=== PATIENT | female | born 1990 | race American Indian/Alaskan Native ===

== ENCOUNTER 2019-03-10 13:50 | Emergency (ER) | payer OTHER ==
--- NOTE | 2019-03-10 13:57 | Emergency Department Report ---
Blank Doc - Documentation Documentation: This is a 28-year-old female that presents with fatigue, urinary symptoms, and urinary frequency. This initial assessment/diagnostic orders/clinical plan/treatment(s) is/are subject to change based on patient's health status, clinical progression and re- assessment by fellow clinical providers in the ED. Further treatment and workup at subsequent clinical providers discretion. Patient/guardians urged not to elope from the ED as their condition may be serious if not clinically assessed and managed. Initial orders include: 1- Patient sent to [facility] for further evaluation and treatment 2- labs 3- UA
[2019-03-10 14:20] LABS: Basophils % (Auto) 0.5 % (0.0-1.8); Eosinophils # (Auto) 0.3 K/mm3 (0.0-0.4); Eosinophils % (Auto) 3.5 % (0.0-4.3); Hematocrit 37.9 % (30.3-42.9); Hemoglobin 12.6 gm/dl (10.1-14.3); Lymphocytes # (Auto) 2.8 K/mm3 (1.2-5.4); Lymphocytes % (Auto) 36.2 % (13.4-35.0); Mean Corpuscular HGB Conc 33 % (30-34); Mean Corpuscular Volume 98 fl (79-97); Monocytes # (Auto) 0.7 K/mm3 (0.0-0.8); Monocytes % (Auto) 9.3 % (0.0-7.3); Platelet Count 297 K/mm3 (140-440); Red Blood Count 3.86 M/mm3 (3.65-5.03); Red Cell Distribution Width 12.4 % (13.2-15.2)
[2019-03-10 14:34] LABS: BUN/Creatinine Ratio 18; Blood Urea Nitrogen 11 mg/dL (7-17); Calcium 9.1 mg/dL (8.4-10.2); Hemolysis Index 2
[2019-03-10 15:58] LABS: Bilirubin,Urine NEG (Negative); Blood,Urine LG (Negative); Color,Urine Yellow (Yellow); Mucus,Urine FEW /HPF; Urobilinogen,Urine < 2.0 mg/dL (<2.0); WBC,Urine < 1.0 /HPF (0.0-6.0)
--- NOTE | 2019-03-10 17:22 | Emergency Department Report ---
HPI - General Chief Complaint: Hyperglycemia Time Seen by Provider: 03/10/19 13:58 - HPI HPI: This is a 28-year-old female with a history of diabetes taking Humalog Lantus and metformin, history of hypertension taking amlodipine 10 mg daily presents to ED complaining of increased thirst and increased urination the past couple of days. Patient states that she is running out of her medications. Patient states she is working on her insurance at the moment and needs a refill. She denies dysuria, chest pain, shortness of breath, abdominal pain, nausea vomiting or diarrhea ED Past Medical Hx - Past Medical History Hx Hypertension: Yes Hx Diabetes: Yes Additional medical history: neuropathy - Surgical History Hx Cholecystectomy: Yes - Social History Smoking Status: Current Every Day Smoker Substance Use Type: None - Medications Home Medications: Home Medications Medication Instructions Recorded Confirmed Last Taken Type Insulin Glargine,Hum.rec.anlog 100 unit SQ QHS #3 vial 03/10/19 Unknown Rx [Lantus] Insulin Lispro [Humalog] 100 unit SQ TID #2 vial 03/10/19 Unknown Rx amLODIPine [Norvasc] 10 mg PO DAILY #60 tab 03/10/19 Unknown Rx metFORMIN [Glucophage] 500 mg PO BID #60 tablet 03/10/19 Unknown Rx ED Review of Systems ROS: Stated complaint: FATIGUE/THIRSTY/DIABECTIC Other details as noted in HPI Comment: All other systems reviewed and negative Physical Exam - Physical Exam Vital Signs: Vital Signs 03/10/19 03/10/19 13:57 16:05 Temperature 98.5 F Pulse Rate 93 H Respiratory 20 18 Rate Blood Pressure 162/106 O2 Sat by Pulse 99 99 Oximetry Physical Exam: GENERAL: Alert and oriented x3, no apparent distress, Normal Gait, atraumatic. HEAD: Head is normocephalic and a-traumatic. LUNGS: Symetrical with respiration, No wheezing, no rales or crackles, CTAB. HEART: S1, S2 present, regular rate and rhythm without murmur, no rubs, no gallops. Non tender to palpation ABDOMEN: No organomegaly was noted,Positive bowel sounds, soft, and non-dist ended. . Nontender to palpation on all Quadrants, NO CVA tenderness. BACK: Full range of motion, no spinal tenderness, nontender to palpation. SKIN: Warm and dry, No lesions, No ulceration or induration present. ED Course Vital Signs 03/10/19 03/10/19 13:57 16:05 Temperature 98.5 F Pulse Rate 93 H Respiratory 20 18 Rate Blood Pressure 162/106 O2 Sat by Pulse 99 99 Oximetry ED Medical Decision Making - Lab Data Result diagrams: 03/10/19 14:03 03/10/19 14:03 - Medical Decision Making 28-year-old female presents with decreased urination, uncontrolled diabetes All labs within normal limits, urinalysis within normal limits Discussed findings with the patient. Discussed the patient he will need follow-up with the primary care doctor to monitor diabetes. Patient is in no acute distress. Patient is pleasant and speaks clearly Critical care attestation.: If time is entered above; I have spent that time in minutes in the direct care of this critically ill patient, excluding procedure time. ED Disposition Clinical Impression: Diabetes mellitus with hyperglycemia Disposition: DC-01 TO HOME OR SELFCARE Is pt being admited?: No Does the pt Need Aspirin: No Condition: Stable Instructions: Diabetes Mellitus Type 2 in Adults (ED) Additional Instructions: Make sure to follow up with the primary care physician as discussed. Take all your medications as you've been prescribed. If you have any worsening symptoms or develop new symptoms please return to ED immediately. Prescriptions: Insulin Glargine,Hum.rec.anlog [Lantus] 100 unit SQ QHS #3 vial metFORMIN [Glucophage] 500 mg PO BID #60 tablet Insulin Lispro [Humalog] 100 unit SQ TID #2 vial amLODIPine [Norvasc] 10 mg PO DAILY #60 tab Referrals: MATIAS MOON MD [Primary Care Provider] - 3-5 Days Forms: Accompanied Note, Work/School Release Form(ED) Time of Disposition: 17:33
[2019-03-10 17:26] VITALS: BP 171/99
== END 2019-03-10 17:52 | disposition home or self-care (01) ==
LOC: ED 13:50
DX: E11.65 Type 2 diabetes mellitus with hyperglycemia (principal); I10 Essential (primary) hypertension; E11.40 Type 2 diabetes mellitus with diabetic neuropathy, unspecified; F17.200 Nicotine dependence, unspecified, uncomplicated; Z90.49 Acquired absence of other specified parts of digestive tract; Z79.4 Long term (current) use of insulin
CPT/HCPCS: 36415; 80048; 81001; 82805; 82962; 84703; 85025; 99283

== ENCOUNTER 2019-04-19 02:33 | Emergency (ER) | payer SELFPAY ==
[2019-04-19] MEDS ORDERED: NORCO 5/325 PO ONE (03:56)
--- NOTE | 2019-04-19 04:00 | Emergency Department Report ---
ED Lower Extremity HPI - General Chief Complaint: Extremity Injury, Lower Stated Complaint: LEFT LEG PAIN Source: patient Mode of arrival: Ambulatory Limitations: No Limitations - History of Present Illness Initial Comments: This is a 28-year-old -[place]i female who presents to the emergency room with left leg pain for 2 days. Past medical history of diabetes, hypertension, neuropathy, morbidly obese, and sciatica. The patient states she used to take gabapentin a year ago but hasn't had any issues with neuropathy since then. She reports pain to left lower extremity as burning shooting pain that is constant. Patient states she is currently taken [id number] NSAIDs with no improvement of symptoms. She denies swelling, recent injury, back pain, weakness, or paresthesias. MD Complaint: leg injury Onset/Timin -: days(s) Injury: Leg: Left Place: home Severity: severe Severity scale (0 -10): 10 Improves With: nothing Worsens With: weight bearing Associated Symptoms: numbness, tingling, able to partially bear weight, ambulatory. denies: snap/pop sensation, swelling, unable to bear weight Treatments Prior to Arrival: NSAIDS - Related Data Previous Rx's Medication Instructions Recorded Last Taken Type Insulin Glargine,Hum.rec.anlog 100 unit SQ QHS #3 vial 03/10/19 Unknown Rx [Lantus] Insulin Lispro [Humalog] 100 unit SQ TID #2 vial 03/10/19 Unknown Rx amLODIPine [Norvasc] 10 mg PO DAILY #60 tab 03/10/19 Unknown Rx metFORMIN [Glucophage] 500 mg PO BID #60 tablet 03/10/19 Unknown Rx Acetaminophen/Codeine [Tylenol 1 tab PO Q6H PRN #12 tab 04/19/19 Unknown Rx /Codeine # 3 tab] Gabapentin [Neurontin] 300 mg PO Q8HR #42 capsule 04/19/19 Unknown Rx Allergies Allergy/AdvReac Type Severity Reaction Status Date / Time No Known Allergies Allergy Unverified 03/10/19 13:51 ED Review of Systems ROS: Stated complaint: LEFT LEG PAIN Other details as noted in HPI Constitutional: denies: chills, fever Respiratory: denies: cough, shortness of breath, wheezing Cardiovascular: denies: chest pain, palpitations Gastrointestinal: denies: abdominal pain, nausea, diarrhea Musculoskeletal: arthralgia (left leg). denies: back pain, joint swelling Skin: denies: rash, lesions Neurological: numbness. denies: headache, weakness, paresthesias Psychiatric: denies: anxiety, depression ED Past Medical Hx - Past Medical History Previous Medical History?: Yes Hx Hypertension: Yes Hx Diabetes: Yes Additional medical history: neuropathy, Morbid Obesity - Surgical History Past Surgical History?: Yes Hx Cholecystectomy: Yes - Social History Smoking Status: Current Every Day Smoker Substance Use Type: None - Medications Home Medications: Home Medications Medication Instructions Recorded Confirmed Last Taken Type Insulin Glargine,Hum.rec.anlog 100 unit SQ QHS #3 vial 03/10/19 Unknown Rx [Lantus] Insulin Lispro [Humalog] 100 unit SQ TID #2 vial 03/10/19 Unknown Rx amLODIPine [Norvasc] 10 mg PO DAILY #60 tab 03/10/19 Unknown Rx metFORMIN [Glucophage] 500 mg PO BID #60 tablet 03/10/19 Unknown Rx Acetaminophen/Codeine [Tylenol 1 tab PO Q6H PRN #12 tab 04/19/19 Unknown Rx /Codeine # 3 tab] Gabapentin [Neurontin] 300 mg PO Q8HR #42 capsule 04/19/19 Unknown Rx ED Physical Exam - General Limitations: No Limitations General appearance: alert, in no apparent distress, obese (morbidly) - Respiratory Respiratory exam: Present: normal lung sounds bilaterally. Absent: respiratory distress - Cardiovascular Cardiovascular Exam: Present: regular rate, normal rhythm. Absent: systolic murmur, diastolic murmur, rubs, gallop - GI/Abdominal GI/Abdominal exam: Present: soft, normal bowel sounds - Expanded Lower Extremity Exam Left Hip exam: Present: normal inspection, full ROM Upper Leg exam: Present: normal inspection, full ROM Knee exam: Present: normal inspection, full ROM Lower Leg exam: Present: normal inspection, full ROM. Absent: tenderness, swelling, abrasion, laceration, ecchymosis, deformity, crepidus, dislocation, erythema, palpable cord, Mary's sign Ankle exam: Present: normal inspection, full ROM. Absent: tenderness, swelling, abrasion, laceration, ecchymosis, deformity, crepidus, dislocation, erythema, anterior draw sign Foot/Toe exam: Present: normal inspection, full ROM Neuro vascular tendon exam: Present: no vascular compromise Gait: Positive: observed and limited by pain - Neurological Exam Neurological exam: Present: alert, oriented X3 - Expanded Neurological Exam Expanded Patient oriented to: Present: person, place, time Speech: Present: fluid speech Sensory exam: Lower Extremity Light Touch: Normal, Lower Extremity Pin Prick: Normal, Lower Extremity Temperature: Normal, LE 2 Point Discrimination: Normal Motor strength exam: LLE: 5 DTR: knee (L): 4+, ankle (L): 4+ Best Eye Response ([place]): (4) open spontaneously Best Motor Response ([place]): (6) obeys commands Best Verbal Response ([place]): (5) oriented [place] Total: 15 - Psychiatric Psychiatric exam: Present: normal affect, normal mood - Skin Skin exam: Present: warm, dry, intact, normal color. Absent: rash ED Course Vital Signs 04/19/19 04/19/19 02:50 04:18 Temperature 98.0 F Pulse Rate 88 72 Respiratory 18 16 Rate Blood Pressure 162/103 Blood Pressure 146/98 [Right] O2 Sat by Pulse 100 98 Oximetry ED Lower Extremity MDM - Medical Decision Making Patient was examined by me. Vitals are normal and patient is in no acute distress. Past medical history of neuropathy, diabetes, hypertension, and morbidly obese. No signs of weakness with ambulating. Given Larslan 5/325 mg by mouth while in the ER. Start gabapentin and Tylenol No. 3. Patient instructed to follow-up with her primary care doctor for continued management of diabetic neuropathy. Plan discussed with patient to discharge home and treat outpatient which she agreed with plan. Patient discharged home stable. Critical care attestation.: If time is entered above; I have spent that time in minutes in the direct care of this critically ill patient, excluding procedure time. 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 Follow-up with your primary care doctor for continued management of diabetic neuropathy. Return to the emergency room if worsening symptoms. Prescriptions: Gabapentin [Neurontin] 300 mg PO Q8HR #42 capsule Acetaminophen/Codeine [Tylenol /Codeine # 3 tab] 1 tab PO Q6H PRN #12 tab PRN Reason: Pain , Severe (7-10) Referrals: RADHA GU MD [Staff Physician] - 3-5 Days [facility] [Outside] - 3-5 Days [facility] [Outside] - 3-5 Days [facility] [Outside] - 3-5 Days Time of Disposition: 04:09
[2019-04-19 04:35] VITALS: BP 146/98
== END 2019-04-19 04:49 | disposition home or self-care (01) ==
LOC: ED 02:33
DX: E10.41 Type 1 diabetes mellitus with diabetic mononeuropathy (principal); I10 Essential (primary) hypertension; E66.01 Morbid (severe) obesity due to excess calories; F17.200 Nicotine dependence, unspecified, uncomplicated; Z90.49 Acquired absence of other specified parts of digestive tract; Z68.43 Body mass index [BMI] 50.0-59.9, adult
CPT/HCPCS: 99282

== ENCOUNTER 2019-07-08 16:49 | Emergency (ER) | payer SELFPAY ==
[2019-07-08] MEDS ORDERED: PERCOCET 5/325 PO ONE (19:26)
[2019-07-08] MEDS ORDERED: TORADOL IM ONE (19:26)
--- NOTE | 2019-07-08 20:17 | XRay Report ---
LEFT ANKLE 3 VIEW(S) LEFT FOOT 3 VIEWS INDICATION / CLINICAL INFORMATION: pain following an injury today COMPARISON: None available. FINDINGS: BONES / JOINT(S): No acute fracture or subluxation. No significant arthritis. SOFT TISSUES: No significant abnormality. ADDITIONAL FINDINGS: None. Signer Name: Lion Cheung MD Signed: 07/08/2019 8:13 PM Workstation Name: [id number]
--- NOTE | 2019-07-08 20:48 | Emergency Department Report ---
ED Extremity Problem HPI - General Chief complaint: Extremity Problem,Nontraumatic Stated complaint: LEG/SHOULDER PAIN Time Seen by Provider: 07/08/19 19:20 Source: patient Mode of arrival: Ambulatory Limitations: No Limitations - History of Present Illness Initial comments: Patient is a 28-year-old -[place] female with a history of non-insulin- dependent diabetes and hypertension who presents to the ED record and the acute onset persistent nontraumatic left foot and ankle. For the last 2 days. Patient also complains of right shoulder pain. Patient states that the pain is worse with ambulation, palpation of the left foot or ankle. Patient denies fall, traumatic injury, headache, chest pain, shortness of breath, fever, chills, nausea, vomiting, numbness and tingling or weakness of lower extremities bilaterally, heavy lifting or urinary and bowel incontinence. Patient states that she has been taking [id number] medication for pain with no relief. MD Complaint: extremity pain (LEFT FOOT, LEFT ANKLE, RIGHT SHOULDER), extremity swelling (Left foot), joint swelling (LEFT FOOT), joint paint (Left foot) -: Sudden, days(s) (2) Location: upper extremity (right shoulder), lower extremity (left foot and ankle) History of Same: Yes -: Yes arthralgia, No associated dyspnea, No associated chest pain Radiation: none Severity scale (0 -10): 10 Quality: aching, sharp, constant Consistency: constant Improves with: nothing Worsens with: weight bearing, walking, palpation Associated Symptoms: denies other symptoms, arthralgias. denies: chest pain, shortness of breath, myalgias - Related Data Previous Rx's Medication Instructions Recorded Last Taken Type Insulin Glargine,Hum.rec.anlog 100 unit SQ QHS #3 vial 03/10/19 Unknown Rx [Lantus] Insulin Lispro [Humalog] 100 unit SQ TID #2 vial 03/10/19 Unknown Rx metFORMIN [Glucophage] 500 mg PO BID #60 tablet 03/10/19 Unknown Rx Acetaminophen/Codeine [Tylenol 1 tab PO Q6H PRN #12 tab 04/19/19 Unknown Rx /Codeine # 3 tab] Gabapentin [Neurontin] 300 mg PO Q8HR #42 capsule 04/19/19 Unknown Rx Baclofen 20 mg PO Q8H PRN #24 tablet 07/08/19 Unknown Rx Ketoprofen 75 mg PO Q8H PRN #30 capsule 07/08/19 Unknown Rx amLODIPine [Norvasc] 10 mg PO DAILY #60 tab 07/08/19 Unknown Rx traMADol [Ultram] 50 mg PO Q6HR PRN #12 tablet 07/08/19 Unknown Rx Allergies Allergy/AdvReac Type Severity Reaction Status Date / Time No Known Allergies Allergy Unverified 03/10/19 13:51 ED Review of Systems ROS: Stated complaint: LEG/SHOULDER PAIN Other details as noted in HPI Constitutional: denies: chills, fever Eyes: denies: eye pain, eye discharge, vision change ENT: denies: ear pain, throat pain Respiratory: denies: cough, shortness of breath, wheezing Cardiovascular: denies: chest pain, palpitations Endocrine: no symptoms reported Gastrointestinal: denies: abdominal pain, nausea, diarrhea Genitourinary: denies: urgency, dysuria, discharge Musculoskeletal: joint swelling (left foot and ankle), arthralgia (left foot, ankle and right shoulder), myalgia. denies: back pain Skin: denies: rash, lesions Neurological: denies: headache, weakness, paresthesias Psychiatric: denies: anxiety, depression Hematological/Lymphatic: denies: easy bleeding, easy bruising ED Past Medical Hx - Past Medical History Hx Hypertension: Yes Hx Diabetes: Yes Additional medical history: neuropathy, Morbid Obesity - Surgical History Hx Cholecystectomy: Yes - Social History Smoking Status: Current Every Day Smoker Substance Use Type: None - Medications Home Medications: Home Medications Medication Instructions Recorded Confirmed Last Taken Type Insulin Glargine,Hum.rec.anlog 100 unit SQ QHS #3 vial 03/10/19 Unknown Rx [Lantus] Insulin Lispro [Humalog] 100 unit SQ TID #2 vial 03/10/19 Unknown Rx metFORMIN [Glucophage] 500 mg PO BID #60 tablet 03/10/19 Unknown Rx Acetaminophen/Codeine [Tylenol 1 tab PO Q6H PRN #12 tab 04/19/19 Unknown Rx /Codeine # 3 tab] Gabapentin [Neurontin] 300 mg PO Q8HR #42 capsule 04/19/19 Unknown Rx Baclofen 20 mg PO Q8H PRN #24 tablet 07/08/19 Unknown Rx Ketoprofen 75 mg PO Q8H PRN #30 capsule 07/08/19 Unknown Rx amLODIPine [Norvasc] 10 mg PO DAILY #60 tab 07/08/19 Unknown Rx traMADol [Ultram] 50 mg PO Q6HR PRN #12 tablet 07/08/19 Unknown Rx ED Physical Exam - General Limitations: No Limitations General appearance: alert, in no apparent distress - Head Head exam: Present: atraumatic, normocephalic, normal inspection - Eye Eye exam: Present: normal appearance, PERRL, EOMI. Absent: scleral icterus, conjunctival injection, nystagmus, periorbital swelling, periorbital tenderness Pupils: Present: normal accommodation - ENT ENT exam: Present: normal exam, normal orophraynx, mucous membranes moist, TM's normal bilaterally, normal external ear exam - Neck Neck exam: Present: normal inspection, full ROM. Absent: tenderness, meningismus, lymphadenopathy, thyromegaly - Respiratory Respiratory exam: Present: normal lung sounds bilaterally. Absent: respiratory distress, wheezes, rhonchi, chest wall tenderness, decreased breath sounds, prolonged expiratory - Cardiovascular Cardiovascular Exam: Present: regular rate, normal rhythm, normal heart sounds. Absent: systolic murmur, diastolic murmur, rubs, gallop - GI/Abdominal GI/Abdominal exam: Present: soft, normal bowel sounds. Absent: tenderness, rebound, hyperactive bowel sounds, organomegaly, bruit - Rectal Rectal exam: Present: deferred - Extremities Exam Extremities exam: Present: normal inspection, tenderness (left foot and ankle; also right shoulder tenderness), normal capillary refill. Absent: pedal edema, joint swelling, calf tenderness - Back Exam Back exam: Present: normal inspection, full ROM. Absent: tenderness, CVA tenderness (R), CVA tenderness (L), muscle spasm, paraspinal tenderness, vertebral tenderness - Neurological Exam Neurological exam: Present: alert, oriented X3, CN II-XII intact, normal gait, reflexes normal - Psychiatric Psychiatric exam: Present: normal affect, normal mood - Skin Skin exam: Present: warm, dry, intact, normal color. Absent: rash ED Course Vital Signs 07/08/19 07/08/19 17:06 20:18 Temperature 97.8 F Pulse Rate 85 Respiratory 24 16 Rate Blood Pressure 152/86 - Reevaluation(s) Reevaluation #1: 07/08/19 20:54 This is a 28-year-old female who presented to the ED with persistent nontraumatic left foot, left ankle and shoulder pain. In the ED, patient is alert and oriented 3 and is not in distress. Patient was treated in the ED and left ankle x-ray shows no acute fractures or subluxations. Left foot x-ray shows no fractures or subluxations. Patient's symptoms are likely due to muscle strain and muscle spasm, or left plantar fasciitis. Patient was discharged home on pain medications and also muscle relaxants and advised to follow-up with her primary care physician in 5-7 days for reevaluation or return to the ED immediately if symptoms get worse. ED Medical Decision Making - Radiology Data Radiology results: report reviewed, image reviewed Left ankle x-ray: No acute fractures or subluxations Left foot x-ray: No acute fractures or subluxations - Medical Decision Making This is a 28-year-old female who presented to the ED with persistent nontraumatic left foot, left ankle and shoulder pain. In the ED, patient is alert and oriented 3 and is not in distress. Patient was treated in the ED and left ankle x-ray shows no acute fractures or subluxations. Left foot x-ray shows no fractures or subluxations. Patient's symptoms are likely due to muscle strain and muscle spasm, or left plantar fasciitis. Patient was discharged home on pain medications and also muscle relaxants and advised to follow-up with her primary care physician in 5-7 days for reevaluation or return to the ED immediately if symptoms get worse. - Differential Diagnosis Left plantar fasciitis; muscle strain of left ankle, shoulder tendonitis Critical care attestation.: If time is entered above; I have spent that time in minutes in the direct care of this critically ill patient, excluding procedure time. ED Disposition Clinical Impression: Plantar fasciitis of left foot Muscle strain of left foot Qualifiers: Encounter type: initial encounter Qualified Code(s): S96.912A - Strain of unspecified muscle and tendon at ankle and foot level, left foot, initial encounter Disposition: DC- TO HOME OR SELFCARE Is pt being admited?: No Does the pt Need Aspirin: No Condition: Stable Instructions: Muscle Strain (ED), Plantar Fasciitis (ED) Additional Instructions: Take pain medications with food, drink plenty of fluids and follow-up with your primary care physician in 5-7 days for reevaluation. Return to the ED immediately if symptoms get worse. Prescriptions: Baclofen 20 mg PO Q8H PRN #24 tablet PRN Reason: Muscle Spasm Ketoprofen 75 mg PO Q8H PRN #30 capsule PRN Reason: Pain , Severe (7-10) amLODIPine [Norvasc] 10 mg PO DAILY #60 tab traMADol [Ultram] 50 mg PO Q6HR PRN #12 tablet PRN Reason: Pain Referrals: PRIMARY CARE,MD [Primary Care Provider] - 3-5 Days Forms: Work/School Release Form(ED) Time of Disposition: 20:41 Print Language: LATVIAN
[2019-07-08 23:46] VITALS: BP 149/84
== END 2019-07-08 21:05 | disposition home or self-care (01) ==
LOC: ED 16:49
DX: S96.912A Strain of unspecified muscle and tendon at ankle and foot level, left foot, initial encounter (principal); M72.2 Plantar fascial fibromatosis; F17.200 Nicotine dependence, unspecified, uncomplicated; E11.9 Type 2 diabetes mellitus without complications; Z90.49 Acquired absence of other specified parts of digestive tract; X58.XXXA Exposure to other specified factors, initial encounter; Y93.89 Activity, other specified; Y92.89 Other specified places as the place of occurrence of the external cause; Y99.8 Other external cause status
CPT/HCPCS: 73610; 73630; J1885; 96372

== ENCOUNTER 2019-10-21 15:11 | Emergency (ER) | payer SELFPAY ==
[2019-10-21 17:05] VITALS: BP 168/87
--- NOTE | 2019-10-21 17:13 | Event Note ---
ED Screening Note Date of service: 10/21/19 Time: 17:05 ED Screening Note: 28 yo IDDM c/o headache, thrist, increased urination. No fever no chills no vomiting no diarrhea. She recently changed Insulin from Humalog to Novolog . She also take Lantus. She also reports hx of HTN out of BP meds and Neurotin for for neuropathy. This initial assessment/diagnostic orders/clinical plan/treatment(s) is/are subject to change based on patients health status, clinical progression and re- assessment by fellow clinical providers in the ED. Further treatment and workup at subsequent clinical providers discretion. Patient/guardian urged not to elope from the ED as their condition may be serious if not clinically assessed and managed. Initial orders include: CBC CMP UA
[2019-10-21 18:05] LABS: Bacteria,Urine 1+ /HPF (Negative); Bilirubin,Urine NEG (Negative); Blood,Urine NEG (Negative); Color,Urine Yellow (Yellow); Mucus,Urine FEW /HPF; Urobilinogen,Urine < 2.0 mg/dL (<2.0)
[2019-10-21 18:12] LABS: Basophils # (Auto) 0.1 K/mm3 (0.0-0.1); Basophils % (Auto) 0.7 % (0.0-1.8); Eosinophils # (Auto) 0.3 K/mm3 (0.0-0.4); Eosinophils % (Auto) 3.3 % (0.0-4.3); Hematocrit 36.7 % (30.3-42.9); Hemoglobin 12.4 gm/dl (10.1-14.3); Lymphocytes # (Auto) 3.2 K/mm3 (1.2-5.4); Lymphocytes % (Auto) 38.9 % (13.4-35.0); Mean Corpuscular HGB Conc 34 % (30-34); Mean Corpuscular Volume 97 fl (79-97); Monocytes # (Auto) 0.7 K/mm3 (0.0-0.8); Monocytes % (Auto) 8.9 % (0.0-7.3); Platelet Count 296 K/mm3 (140-440); Red Blood Count 3.79 M/mm3 (3.65-5.03); Red Cell Distribution Width 12.7 % (13.2-15.2)
[2019-10-21 18:46] LABS: Alanine Aminotransferase 17 units/L (7-56); Albumin 3.7 g/dL (3.9-5); BUN/Creatinine Ratio 18; Blood Urea Nitrogen 9 mg/dL (7-17); Calcium 8.9 mg/dL (8.4-10.2); Hemolysis Index 10
--- NOTE | 2019-10-21 19:27 | Emergency Department Report ---
ED General Adult HPI - General Chief complaint: Headache Stated complaint: HBP Time Seen by Provider: 10/21/19 17:04 Source: patient Mode of arrival: Ambulatory Limitations: No Limitations - History of Present Illness Initial comments: 28 yo IDDM c/o headache, thrist, increased urination. No fever no chills no vomiting no diarrhea. She recently changed Insulin from Humalog to Novolog . She also take Lantus. She also reports hx of HTN out of BP meds and Neurotin for for neuropathy. Patient reports she's been out of her medications for a month. Onset/Timin -: month(s) Location: head Quality: aching Consistency: intermittent Improves with: none Worsens with: none Associated Symptoms: denies other symptoms Treatments Prior to Arrival: NSAID - Related Data Previous Rx's Medication Instructions Recorded Last Taken Type Insulin Glargine,Hum.rec.anlog 100 unit SQ QHS #3 vial 03/10/19 Unknown Rx [Lantus] Insulin Lispro [Humalog] 100 unit SQ TID #2 vial 03/10/19 Unknown Rx metFORMIN [Glucophage] 500 mg PO BID #60 tablet 03/10/19 Unknown Rx Acetaminophen/Codeine [Tylenol 1 tab PO Q6H PRN #12 tab 04/19/19 Unknown Rx /Codeine # 3 tab] Gabapentin 300 mg PO Q8HR #42 capsule 04/19/19 Unknown Rx Baclofen 20 mg PO Q8H PRN #24 tablet 07/08/19 Unknown Rx Ketoprofen 75 mg PO Q8H PRN #30 capsule 07/08/19 Unknown Rx traMADoL [Ultram] 50 mg PO Q6HR PRN #12 tablet 07/08/19 Unknown Rx amLODIPine 10 mg PO DAILY #15 tab 10/21/19 Unknown Rx Allergies Allergy/AdvReac Type Severity Reaction Status Date / Time No Known Allergies Allergy Unverified 03/10/19 13:51 ED Review of Systems ROS: Stated complaint: HBP Other details as noted in HPI Comment: All other systems reviewed and negative ED Past Medical Hx - Past Medical History Previous Medical History?: Yes Hx Hypertension: Yes Hx Diabetes: Yes Additional medical history: neuropathy, Morbid Obesity - Surgical History Past Surgical History?: Yes Hx Cholecystectomy: Yes - Social History Smoking Status: Current Every Day Smoker - Medications Home Medications: Home Medications Medication Instructions Recorded Confirmed Last Taken Type Insulin Glargine,Hum.rec.anlog 100 unit SQ QHS #3 vial 03/10/19 Unknown Rx [Lantus] Insulin Lispro [Humalog] 100 unit SQ TID #2 vial 03/10/19 Unknown Rx metFORMIN [Glucophage] 500 mg PO BID #60 tablet 03/10/19 Unknown Rx Acetaminophen/Codeine [Tylenol 1 tab PO Q6H PRN #12 tab 04/19/19 Unknown Rx /Codeine # 3 tab] Gabapentin 300 mg PO Q8HR #42 capsule 04/19/19 Unknown Rx Baclofen 20 mg PO Q8H PRN #24 tablet 07/08/19 Unknown Rx Ketoprofen 75 mg PO Q8H PRN #30 capsule 07/08/19 Unknown Rx traMADoL [Ultram] 50 mg PO Q6HR PRN #12 tablet 07/08/19 Unknown Rx amLODIPine 10 mg PO DAILY #15 tab 10/21/19 Unknown Rx ED Physical Exam - General Limitations: No Limitations General appearance: alert, in no apparent distress - Head Head exam: Present: atraumatic, normocephalic - Eye Eye exam: Present: normal appearance - ENT ENT exam: Present: mucous membranes moist - Respiratory Respiratory exam: Present: normal lung sounds bilaterally. Absent: respiratory distress - Cardiovascular Cardiovascular Exam: Present: regular rate, normal rhythm. Absent: systolic murmur, diastolic murmur, rubs, gallop - GI/Abdominal GI/Abdominal exam: Present: soft, normal bowel sounds - Neurological Exam Neurological exam: Present: normal gait - Expanded Neurological Exam Expanded Cranial nerves: EOM's Intact: Normal, Gag Reflex: Normal, Tongue Deviation: Normal, Nystagmus: Normal, Facial Sensation: Normal, Facial Palsy with Forehead Movement: Normal, Facial Palsy without Forehead Movement: Normal Cerebellar function: Finger to Nose: Normal, Heel to Snyder: Normal, Romberg: Normal Upper motor neuron: Kwaku Neglect: Normal, Pronator Drift: Normal, Babinski Sign: Normal, Sensory Extinction: Normal Sensory exam: Upper Extremity Light Touch: Normal, Upper Extremity Pin Prick: Normal, Upper Extremity Temperature: Normal, UE 2 Point Discrimination: Normal, Lower Extremity Light Touch: Normal, Lower Extremity Pin Prick: Normal, Lower Extremity Temperature: Normal, LE 2 Point Discrimination: Normal Motor strength exam: RUE: 4, LUE: 4, RLE: 4, LLE: 4 Best Eye Response (Main): (4) open spontaneously Best Motor Response (Main): (6) obeys commands Best Verbal Response ([place]): (5) oriented [place] Total: 15 - Psychiatric Psychiatric exam: Present: normal affect, normal mood - Skin Skin exam: Present: warm, dry, intact, normal color. Absent: rash ED Course Vital Signs 10/21/19 17:04 Temperature 98.2 F Pulse Rate 89 Respiratory 20 Rate Blood Pressure 168/87 O2 Sat by Pulse 100 Oximetry ED Medical Decision Making - Lab Data Result diagrams: 10/21/19 17:52 10/21/19 17:52 - Medical Decision Making 28 yo IDDM c/o headache, thrist, increased urination. No fever no chills no vomiting no diarrhea. She recently changed Insulin from Humalog to Novolog . She also take Lantus. She also reports hx of HTN out of BP meds and Neurotin for for neuropathy. Patient reports that she comes to the emergency room often for refills of her chronic disease medications. Critical care attestation.: If time is entered above; I have spent that time in minutes in the direct care of this critically ill patient, excluding procedure time. ED Disposition Clinical Impression: IDDM (insulin dependent diabetes mellitus), Headache, HTN (hypertension) Disposition: DC-01 TO HOME OR SELFCARE Is pt being admited?: No Does the pt Need Aspirin: No Condition: Stable Instructions: Diabetes Mellitus Type 2 in Adults (ED), Hypertension (ED) Additional Instructions: Emergency room is not the place for management of her chronic diseases. It's imperative that she follow-up with a primary care provider or internal medicine provider. I have listed one below as well as given a handout. Her labs are stable. Prescriptions: amLODIPine 10 mg PO DAILY #15 tab Referrals: KRISTOPHER COPELAND MD [Staff Physician] - 3-5 Days Forms: Work/School Release Form(ED)
== END 2019-10-21 19:49 | disposition home or self-care (01) ==
LOC: ED 15:11
DX: E11.40 Type 2 diabetes mellitus with diabetic neuropathy, unspecified (principal); I10 Essential (primary) hypertension; F17.200 Nicotine dependence, unspecified, uncomplicated; Z90.49 Acquired absence of other specified parts of digestive tract; Z79.4 Long term (current) use of insulin; Z79.899 Other long term (current) drug therapy
CPT/HCPCS: 36415; 80053; 81001; 82962; 85025

== ENCOUNTER 2019-10-22 09:13 | Outpatient (CLI) | payer OTHER ==
--- NOTE | 2019-10-22 10:09 | XRay Report ---
LUMBAR SPINE 3 VIEWS INDICATION / CLINICAL INFORMATION: BACK PAIN. COMPARISON: None available. FINDINGS: No significant skeletal abnormality. Alignment is normal. Signer Name: Dawit Miramontes MD FACMarcelo Signed: 10/22/2019 10:05 AM Workstation Name: [id number]
--- NOTE | 2019-10-22 10:09 | XRay Report ---
LEFT HIP 3 VIEWS INDICATION / CLINICAL INFORMATION: LEFT HIP PAIN. COMPARISON: None available. FINDINGS: A 6.5 cm exophytic lesion is seen in the proximal left femur. 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 No other significant skeletal abnormality is seen. MRI of the proximal left femur with and wi thout contrast is recommended for further evaluation. Signer Name: Dawit ALBERTO Signed: 10/22/2019 10:04 AM Workstation Name: [id number]
== END 2019-10-22 09:14 | disposition home or self-care (01) ==
LOC: XRAY 09:13
PROVIDERS: ATTEND Internal Medicine
DX: E11.40 Type 2 diabetes mellitus with diabetic neuropathy, unspecified (principal); M54.30 Sciatica, unspecified side; M25.852 Other specified joint disorders, left hip; I10 Essential (primary) hypertension
CPT/HCPCS: 72100